=== PATIENT | female | born 1935 | race Caucasian/White ===

== ENCOUNTER 2019-02-19 11:47 | Day surgery (SDC) | payer MEDICARE ==
[~2019-02-19] VITALS: Ht 165.1 cm; Wt 77.3 kg
[~2019-02-19 11:47] MED LIST: AMYL1CAP PO; BETA1TAB18 PO; CALC-815 PO; CHOL50006 PO; CORDYCEPS PO; CYAN-19 PO; ESTR42.53 VG; FLAXSEED OIL PO; GLIM2TAB2 PO; LANTUS SQ; NASCENT IODINE PO; SPIR50TA5 PO; VITC500T PO; [UNRECOGNIZED DRUG - CODE] PO; [UNRECOGNIZED DRUG - OTHER] PO; [UNRECOGNIZED DRUG - OTHER] PO; [UNRECOGNIZED DRUG - OTHER] PO; [UNRECOGNIZED DRUG - OTHER] PO
[2019-02-19 12:00] VITALS: BP 139/87
[2019-02-19] MEDS ORDERED: fentaNYL/PF 50MCG/1 ML 2ML syringe ONE (12:15)
[2019-02-19] MEDS ORDERED: MIDAZolam 5mg/5ml vial ONE (12:16)
[2019-02-19] MEDS ORDERED: LIDOcaine Viscous 15ml cup ONE (12:16)
[2019-02-19 12:51] VITALS: BP 152/67
[2019-02-19 13:01] VITALS: BP 160/76
[2019-02-19 13:11] VITALS: BP 163/74
[2019-02-19 13:21] VITALS: BP 149/78
== END 2019-02-19 13:24 | disposition home or self-care (01) ==
LOC: GI LAB 11:47
PROVIDERS: ATTEND Internal Medicine Gastroenterology
DX: I85.00 Esophageal varices without bleeding (principal); K76.6 Portal hypertension; K31.89 Other diseases of stomach and duodenum
CPT/HCPCS: 43244; G0500; J2250; J3010; J7030; 99152; A4620

== ENCOUNTER 2019-03-26 11:32 | Day surgery (SDC) | payer MEDICARE ==
[~2019-03-26] VITALS: Ht 165.1 cm; Wt 81.8 kg
[~2019-03-26 11:32] MED LIST changes: -AMYL1CAP PO; -ESTR42.53 VG; -GLIM2TAB2 PO; -[UNRECOGNIZED DRUG - CODE] PO; -[UNRECOGNIZED DRUG - OTHER] PO
[2019-03-26 11:43] VITALS: BP 159/73
[2019-03-26] MEDS ORDERED: fentaNYL/PF 50MCG/1 ML 2ML syringe ONE (12:01)
[2019-03-26] MEDS ORDERED: MIDAZolam 5mg/5ml vial ONE (12:02)
[2019-03-26] MEDS ORDERED: LIDOcaine Viscous 15ml cup ONE (12:31)
[2019-03-26 12:50] VITALS: BP 168/90
[2019-03-26 13:00] VITALS: BP 169/59
[2019-03-26 13:10] VITALS: BP 161/76
[2019-03-26 13:20] VITALS: BP 156/76
== END 2019-03-26 13:23 | disposition home or self-care (01) ==
LOC: GI LAB 11:32
PROVIDERS: ATTEND Internal Medicine Gastroenterology
DX: I85.00 Esophageal varices without bleeding (principal); K22.8 Other specified diseases of esophagus; K76.6 Portal hypertension; K31.89 Other diseases of stomach and duodenum
CPT/HCPCS: 43244; G0500; J2250; J3010; J7030; 99152; A4620